=== PATIENT | male | born 1945 | race Caucasian/White ===

== ENCOUNTER 2023-01-30 06:31 | Day surgery (SDC) | payer OTHER ==
[~2023-01-30 06:31] MED LIST: LOTREL 10/40 MG1 CAP; METFORMIN HCL1000 MG
== END 2023-01-30 11:05 | disposition home or self-care (01) ==
LOC: AMB-ENDOS 06:31 → CIR.AMB 13:00
PROVIDERS: ATTEND Surgery
DX: D12.0 Benign neoplasm of cecum (principal); Z20.822 Contact with and (suspected) exposure to COVID-19; K57.30 Diverticulosis of large intestine without perforation or abscess without bleeding